=== PATIENT | female | born 1970 | race Two or more races ===

== ENCOUNTER 2019-11-03 13:15 | Emergency (ER) | payer SELFPAY ==
[~2019-11-03] VITALS: Ht 152.4 cm; Wt 100.0 kg
[~2019-11-03 13:15] MED LIST: NAPR-514 PO; OXYC1TAB15 PO
[2019-11-03 13:57] LABS: BILIRUBIN,URINE NEGATIVE (NEG); CLARITY,URINE CLEAR; COLOR,URINE YELLOW; NITRITE,URINE NEGATIVE (NEG); PROTEIN,URINE NEGATIVE (NEG-TRACE)
[2019-11-03 14:05] LABS: SQUAMOUS EPITHELIAL CELL,UR MOD /LPF
[2019-11-03 14:06] LABS: BACTERIA,URINE 0 /HPF (0-FEW); RBC,URINE 0 /HPF (0-2)
--- NOTE | 2019-11-03 14:10 | PHYS DOC ---
General Adult EDM: Chief Complaint: ABDOMINAL PAIN HPI: HPI: Patient is a 49-year-old previously healthy female who presents to the emergency room complaining of bilateral lower chest pain that started over the last couple of days. She states that the pain is worse when she takes a deep breath. It is particularly bad right under the sternum. She is never had anything like this previously. She denies cough, fever, chills, sweats nausea, vomiting. She has not been around anyone who is been ill that she is aware of. Review of Systems: Review of Systems: General: Denies fever, chills, sweats, fatigue Eyes: Denies drainage, blurred vision, eye redness HENT: Denies rhinorrhea, sore throat, earache Respiratory: Denies cough, shortness of breath, wheezing Cardiac: Denies edema, palpitations.reports chest pain GI: Denies Nausea, vomiting reports abdominal pain MSK: Denies back pain, neck pain Skin: Denies rash, jaundice Neuro: Denies headache, dizziness Psychiatric: Denies SI/HI Heart Score: Risk Factors: Risk Factors: DM, Current or recent (<one month) smoker, HTN, HLP, family history of CAD, obesity. Risk Scores: Score 0 - 3: 2.5% MACE over next 6 weeks - Discharge Home Score 4 - 6: 20.3% MACE over next 6 weeks - Admit for Clinical Observation Score 7 - 10: 72.7% MACE over next 6 weeks - Early Invasive Strategies Allergies: Allergies: Allergies Coded Allergies Type Severity Reaction Last Updated Verified No Known Drug Allergies 09/05/13 No Physical Exam: PE: General: Awake, alert, NAD. Well Nourished, well hydrated. Cooperative HEENT: Atraumatic, EOMI, PERRL, airway patent, moist oral mucosa Neck: Supple, trachea midline Respiratory: CTA bilaterally, normal effort, no wheezing/crackles, chest wall tenderness CV: RRR, no murmur, cap refill <2 GI: Soft, nondistended, epigastric pain, no masses MSK: No obvious deformities Skin: Warm, dry, intact Neuro: A&O x3, speech NL, sensory and motor grossly intact, no focal deficits Psych: Normal affect, normal mood, not suicidal or homicidal Current Patient Data: Labs: Laboratory Tests Test 11/03/19 13:53 POC Urine HCG, Qualitative Hcg negative (Negative) EKG: EKG: [] Radiology/Procedures: Radiology/Procedures: [] Course & Med Decision Making: Course & Med Decision Making Pertinent Labs and Imaging studies reviewed. (See chart for details) Patient is a 49-year-old female presents to the emergency room with bilateral lower chest upper abdomen pain. This pain is pleuritic in nature. Differential diagnosis includes gallbladder pathology, costochondritis, ACS, pneumonia, coronavirus, muscle strain, pulmonary embolism. Extensive work-up was ordered to evaluate for cause of symptoms including CBC, CMP, lipase, chest x-ray, EKG, d-dimer, troponin. D-dimer is negative. Inflammatory markers are elevated carver ggestive of coronavirus. Chest x-ray is negative. Coronavirus swab was done. Patient is oxygenating well here in the emergency room. She was given Toradol for her pain and will be discharged home. Patient's test results and vitals while in the ED were fully reviewed and discussed with the patient. Patient is stable and at this time does not need admission to the hospital. We have discussed strict return precautions and the importance of following up with their Primary Care Physician. Patient stated understanding and was given an opportunity to ask any questions. Patient is in agreement with plan. Dragon Disclaimer: Dragon Disclaimer: This electronic medical record was generated, in whole or in part, using a voice recognition dictation system. Departure Departure Impression: Primary Impression: Epigastric pain Additional Impressions: Chest pain Suspected 2019 novel coronavirus infection Disposition: HOME, SELF-CARE Condition: STABLE Referrals: NO PCP (PCP) Patient Instructions: Chest Pain (Nonspecific) Additional Instructions: Donna por visitar [facility]. Agradecemos que nos confe carver cuidado. Si surge algn problema adicional, no dude en volver a visitarnos. Gutierrez un seguimiento con carver proveedor de atencin primaria para que pueda planificar atencin adicional si es necesario y conocer el problema que tuvo hoy. Si los sntomas empeoran, regrese al Departamento de Emergencias. Cualquier sntoma preocupante que comience, ashwin dolor en el pecho, falta de aire, debilidad o entumecimiento en un lado del cuerpo, fiebre lala o cualquier otro sntoma preocupante, regresa a la adelaida de emergencias. Tiene un sndrome viral que puede incluir sntomas ashwin osvaldo musculares, fiebre, escalofros, secrecin nasal, tos, estornudos, dolor de garganta, nuseas, vmitos o diarrea. Veto de los posibles virus que puede tener es el SARS-CoV-2, el virus que causa el COVID-19, tambin conocido ashwin Coronavirus. Es muy probable que tenga bertram infeccin viral diferente, ashwin el resfriado comn, la gripe, etc. La mayora de los pacientes con coronavirus tienen sntomas leves y se recuperan por s solos. Descansar, mantenerse hidratado y dormir segn los casos conocidos puede ser til. A partir de la visita de kaitlynn, se encuentra lo suficientemente kaelyn ashwin para irse a casa y tratar vivian sntomas con lquidos orales y medicamentos de venta sebastian. Las pruebas de coronavirus no se realizan en la mayora de las personas con sntomas leves que reciben el lala del departamento de emergencias. Si las pruebas de coronavirus se realizaron kaitlynn, los resultados no estarn disponibles hasta posiblemente hasta 3-4 olmedo. Si carver resultado es positivo, nos comunicaremos con usted. Siga las siguientes precauciones en casa: 1. Qudese en casa excepto para recibir atencin mdica. 2. Segn lo recomendado por los CDC, le recomendamos que se quede en carver casa y minimice el contacto con otras personas. No queremos que propague la infeccin. 3. Aquellos que son mayores o tienen problemas mdicos importantes pueden tener sntomas ms graves de esta infeccin. Recomendamos el autoaislamiento ENRIQUE AL MENOS 7 OLMEDO despus del primer da de sntomas. DESPUS de que se sienta mejor, espere AL MENOS BERTRAM SEMANA antes de volver a vivian actividades habituales y estar rodeado de otras personas. 4. SI se siente ms enfermo y tiene dificultad para respirar, dolor en el pecho, no puede comer / beber, vmitos intensos, diarrea o debilidad, es posible que deba regresar al Departamento de Emergencias. 5. Debe restringir las actividades fuera de carver hogar, excepto para recibir atencin mdica. NO vaya al trabajo, la escuela o reas pblicas. Evite el uso de transporte pblico, viajes compartidos o taxis. 6. Seprese de otras personas en carver hogar. Debe usar un lynda separado si es posible. 7. Evite compartir artculos domsticos personales ashwin platos, tazas, cubiertos, toallas, etc. 8. Limpie todas las superficies de alto contacto todos los olmedo (pomos de las ashley, encimeras, etc.). Use un aerosol de limpieza para el hogar o lmpielo segn las instrucciones de la etiqueta. 9. Lvese las harper con frecuencia. Lvese las harper con agua y jabn enrique al menos 20 segundos. 10. Cbrase la boca y la nariz al toser o estornudar. 11. Tire los pauelos de papel usados ??a la basura y lvese las harper inmediatamente. Para obtener recursos adicionales, visite el sitio web de los CDC o el Departamento de [place] ([phone]), tambin puede llamar al 211 para obtener ms edgar. Scripts Ketorolac Tromethamine (KETOROLAC TROMETHAMINE) 10 Mg Tablet 1 TAB PO TID, #15 TAB Prov: MELISSA CADE MD 11/03/19 Justicifation of Admission Dx: Justifications for Admission: Justification of Admission Dx: N/A MELISSA CADE MD Nov 03, 2019 14:10
--- NOTE | 2019-11-03 14:28 | EKG ---
[facility] [address] [place] [address] Test Date: 2019-11-03 Test Time: 14:18:25 Pat Name: VENKATESH RO Department: Room: Gender: F [employer] Work[employer]: : 1970 Requested By: MELISSA CADE Order Number: [id number] Reading MD: Measurements Intervals [place] Rate: 96 P: 48 MT: 142 QRS: 28 QRSD: 94 T: 24 QT: 358 QTc: 453 Interpretive Statements SINUS RHYTHM QRS(T) CONTOUR ABNORMALITY CONSIDER ANTEROSEPTAL MYOCARDIAL DAMAGE POSSIBLY ABNORMAL ECG RI6.01 No previous ECG available for comparison
[2019-11-03 14:29] LABS: BASO % 0 % (0-3); EOS % 1 % (0-3); HEMATOCRIT 32.8 % (36.0-47.0); HEMOGLOBIN 10.9 g/dL (12.0-15.5); LYMPH % 16 % (24-48); MEAN CORPUSCULAR HEMOGLOBIN 26 pg (25-35); MEAN CORPUSCULAR HGB CONC 33 g/dL (31-37); MEAN CORPUSCULAR VOLUME 79 fL (79-100); MONO # 0.3 x10^3/uL (0.0-1.1); MONO % 4 % (0-9); NEUT # 4.9 x10^3/uL (1.8-7.7); NEUT % 79 % (31-73); PLATELET COUNT 261 x10^3/uL (140-400); RED BLOOD COUNT 4.15 x10^6/uL (3.50-5.40); RED CELL DISTRIBUTION WIDTH 14.8 % (11.5-14.5); WHITE BLOOD COUNT 6.2 x10^3/uL (4.0-11.0)
--- NOTE | 2019-11-03 14:40 | RAD ---
Chest AP portable at 1404: Reason for examination: Chest pain. The heart size is normal. Mediastinum is unremarkable. Lung najera are clear. No acute bony abnormality is seen. IMPRESSION: No acute cardiopulmonary disease. Electronically signed by: Annalise Medina MD (11/03/2019 2:38 PM) [id number]
[2019-11-03 14:44] LABS: CALCIUM 7.6 mg/dL (8.5-10.1); CREATININE 0.8 mg/dL (0.6-1.0); GFR 76.9; POTASSIUM 3.3 mmol/L (3.5-5.1)
[2019-11-03 14:47] LABS: C-REACTIVE PROTEIN 78.1 mg/L (0-3.3)
[2019-11-03 14:51] LABS: ALBUMIN/GLOBULIN RATIO 0.7 (1.0-1.7); TOTAL BILIRUBIN 0.2 mg/dL (0.2-1.0); TOTAL PROTEIN 7.6 g/dL (6.4-8.2)
[2019-11-03] MEDS ORDERED: KETOROLAC 30 MG/ML VIAL. IVP ONE (15:30)
[2019-11-03 16:00] VITALS: BP 103/64
[2019-11-03] MEDS ORDERED: KETO10TA PO (16:11)
--- NOTE | 2019-11-06 10:15 | NUR ---
IP: Attempted to call negative COVID results. Left voicemail to return my call.
== END 2019-11-03 16:26 | disposition home or self-care (01) ==
LOC: ER 13:15
DX: U07.1 COVID-19 (principal); R07.1 Chest pain on breathing; R10.13 Epigastric pain
CPT/HCPCS: 36415; 71045; 80053; 81001; 81025; 83615; 83690; 83880; 84484; 85025; 85379; 86140; 93005; 96374; 99285; C9803; J1885; U0003